=== PATIENT | male | born 1965 | race Two or more races ===

== ENCOUNTER 2020-09-02 10:30 | Outpatient (REF) | payer OTHER, SELFPAY ==
[2020-09-02 12:01] LABS: Alanine Aminotransferase 22 U/L (0-40); Albumin Level 4.5 g/dL (3.5-5.0); Alkaline Phosphatase 64 U/L (39-117); Anion Gap 13 (12-20); Aspartate Amino Transferase 22 U/L (5-37); Bilirubin Total 0.6 mg/dL (0.0-1.0); Blood Urea Nitrogen 18 mg/dL (9-16); Calcium 9.2 mg/dL (8.4-10.2); Carbon Dioxide 30 mmol/L (22-29); Chloride 103 mmol/L (96-108); Cholesterol 229 mg/dL; Estimated Glomerular Filt Rate > 60; Glucose Fasting 107 mg/dL (60-99); HDL Cholesterol 71 mg/dL; LDL Cholesterol Calculated 143 mg/dl; Potassium 5.2 mmol/L (3.3-5.1); Sodium 141 mmol/L (135-145); Total Protein 7.7 g/dL (6.5-8.0); Triglycerides 76 mg/dL
[2020-09-02 12:07] LABS: TSH reflex Free T4 0.73 uIU/mL (0.32-4.0)
== END 2020-09-02 10:31 | disposition home or self-care (01) ==
LOC: HO.HMGCLDS 10:30
PROVIDERS: PCP Nurse Practitioner Family; Visit Provider Nurse Practitioner Family
DX: Z00.00 Encounter for general adult medical examination without abnormal findings (principal); Z12.5 Encounter for screening for malignant neoplasm of prostate
CPT/HCPCS: 36415; 80053; 80061; 84153; 84443

== ENCOUNTER 2021-05-06 07:28 | Outpatient (REF) | payer OTHER, SELFPAY ==
[2021-05-06 12:25] LABS: Alanine Aminotransferase 36 U/L (0-40); Albumin Level 4.1 g/dL (3.5-5.0); Alkaline Phosphatase 65 U/L (39-117); Anion Gap 12 (12-20); Aspartate Amino Transferase 28 U/L (5-37); Bilirubin Total 0.4 mg/dL (0.0-1.0); Blood Urea Nitrogen 12 mg/dL (9-16); Calcium 9.1 mg/dL (8.4-10.2); Carbon Dioxide 28 mmol/L (22-29); Chloride 105 mmol/L (96-108); Cholesterol 170 mg/dL; Estimated Glomerular Filt Rate > 60; Glucose Fasting 93 mg/dL (60-99); HDL Cholesterol 56 mg/dL; LDL Cholesterol Calculated 96 mg/dl; Potassium 4.5 mmol/L (3.3-5.1); Sodium 140 mmol/L (135-145); Total Protein 7.2 g/dL (6.5-8.0); Triglycerides 90 mg/dL
== END 2021-05-06 07:29 | disposition home or self-care (01) ==
LOC: HO.HMGCLDS 07:28
PROVIDERS: PCP Nurse Practitioner Family; Visit Provider Nurse Practitioner Family
DX: E78.5 Hyperlipidemia, unspecified (principal)
CPT/HCPCS: 36415; 80053; 80061

== ENCOUNTER 2022-11-13 12:14 | Outpatient (REF) | payer OTHER, SELFPAY ==
--- NOTE | ~2022-11-13 | CT_ITS ---
EXAMINATION: CT CHEST SCREENING CLINICAL INFORMATION: Nicotine dependence, current smoker. COMPARISON: None available. TECHNIQUE: Multidetector volumetric CT imaging of the chest is performed without contrast using low dose technique. Additional 2D coronal and sagittal reformatted images and axial 3D maximum intensity projection (MIP) images are generated on the CT workstation. This CT examination was performed using dose optimization techniques as appropriate, variously including the following: *Automated exposure control *Adjustment of mA and/or kV according to patient size (this includes techniques or standardized protocols for targeted exams where dose is matched to indication/reason for exam; i.e. extremities or head) *Use of iterative reconstruction technique DLP: 55 mGy-cm FINDINGS: LUNGS: The lungs are expanded with bilateral apical pleural thickening and parenchymal scarring. There is mild atelectatic changes left lung base and lingula. There is a 2 mm calcified nodule left lower lobe axial image 49/4, 2 mm noncalcified nodule right lower lobe axial image 31/4, 3 mm nodule left major fissure axial image 30/4, likely intrafissural lymph node. There is linear focal atelectasis left lung base image 51/3. MEDIASTINUM: The thyroid lobes are symmetric and normal. The central trachea and bronchi are widely patent. The heart size and great vessels are normal caliber. There are no coronary artery calcifications present. No pericardial effusion seen. No abnormal-sized mediastinal or hilar lymph nodes seen. CORONARY ARTERY CALCIFICATION: None visualized on this study. PLEURA: There is no pleural effusion. No pleural mass or thickening. AXILLA: No lymphadenopathy. UPPER ABDOMEN: Visualized liver, spleen, pancreas, bilateral adrenal glands and the gallbladder appear unremarkable. OSSEOUS STRUCTURES: No aggressive lytic or sclerotic process seen. CT/CT lung screening IMPRESSION: 1. Small calcified and noncalcified pulmonary nodules. 2. Low-dose annual CT chest. ASSESSMENT: Lung-RADS category 2: Benign RECOMMENDATION: Low-dose annual CT chest
[2022-11-13 12:25] LABS: MANUAL DIFF FLAG NO
[2022-11-13 13:10] LABS: Basophils Percent Auto 0.6 % (0-2); Eosinophils Absolute Auto 0.1 X10*3/uL (0.0-0.4); Eosinophils Percent Auto 1.5 % (0-4); Hematocrit 40.8 % (42.0-52.0); Hemoglobin 13.6 g/dl (14.0-18.0); Imm Gran Abs Auto 0.03 X10*3/uL (0.00-0.03); Imm Gran Pct Auto 0.4 % (0.0-0.4); Lymphocytes Absolute Auto 2.1 X10*3/uL (1.2-4.9); Lymphocytes Percent Auto 29.6 % (20-40); Mean Corpuscular HGB Conc 33.3 g/dl (31.0-36.0); Mean Corpuscular Hemoglobin 31.7 pg (27.0-33.0); Mean Corpuscular Volume 95.1 fL (80.0-98.0); Mean Platelet Volume 10.6 fL (9.4-12.4); Monocytes Absolute Auto 0.7 X10*3/uL (0.1-1.2); Monocytes Percent Auto 9.8 % (2-11); Neutrophils Absolute Auto 4.2 x10*3/uL (2.0-8.3); Neutrophils Percent Auto 58.1 % (45-73); Platelet Count 242 X10*3/uL (160-400); Red Blood Count 4.29 X10*6/uL (4.60-5.80); Red Cell Distribution Width 13.8 % (11.0-16.0); White Blood Count 7.2 X10*3/uL (4.8-10.8)
[2022-11-13 13:13] LABS: Appearance Urine Cloudy; Color Urine Yellow; Glucose Urine UA Negative (Negative); Leukocyte Esterase Urine Negative (Negative); Nitrite Urine Negative (Negative); Urine Blood Negative (Negative); Urine Ketones Negative (Negative); Urine Protein Negative (Neg-Trace)
[2022-11-13 13:57] LABS: Alanine Aminotransferase 27 U/L (0-40); Albumin Level 4.2 g/dL (3.5-5.0); Alkaline Phosphatase 62 U/L (39-117); Anion Gap 12 (12-20); Aspartate Amino Transferase 20 U/L (5-37); Bilirubin Total 0.7 mg/dL (0.0-1.0); Blood Urea Nitrogen 14 mg/dL (9-16); Calcium 9.4 mg/dL (8.4-10.2); Carbon Dioxide 27 mmol/L (22-29); Chloride 105 mmol/L (96-108); Cholesterol 186 mg/dL; Estimated Glomerular Filt Rate > 60; Glucose Fasting 92 mg/dL (60-99); HDL Cholesterol 61 mg/dL; LDL Cholesterol Calculated 113 mg/dl; Potassium 4.1 mmol/L (3.3-5.1); Sodium 140 mmol/L (135-145); Total Protein 7.4 g/dL (6.5-8.0); Triglycerides 63 mg/dL
[2022-11-13 14:18] LABS: Prostate Specific Antigen Scr 0.51 ng/mL (<0.05-4.0); TSH reflex Free T4 0.75 uIU/mL (0.32-4.0)
== END 2022-11-13 12:15 | disposition home or self-care (01) ==
LOC: HO.CT 12:14
PROVIDERS: Absent Provider Nurse Practitioner Family; PCP Nurse Practitioner Family; Visit Provider Physician Assistant Medical
DX: Z00.00 Encounter for general adult medical examination without abnormal findings (principal); Z12.5 Encounter for screening for malignant neoplasm of prostate; Z12.2 Encounter for screening for malignant neoplasm of respiratory organs; F17.210 Nicotine dependence, cigarettes, uncomplicated
CPT/HCPCS: 36415; 71271; 80053; 80061; 81003; 84153; 84443; 85025; G0296

== ENCOUNTER 2023-02-12 10:02 | Outpatient (REF) | payer OTHER, SELFPAY ==
[2023-02-12 13:33] LABS: MANUAL DIFF FLAG NO
[2023-02-12 13:41] LABS: Basophils Percent Auto 0.7 % (0-2); Eosinophils Absolute Auto 0.2 X10*3/uL (0.0-0.4); Eosinophils Percent Auto 4.1 % (0-4); Hematocrit 42.6 % (42.0-52.0); Hemoglobin 14.3 g/dl (14.0-18.0); Imm Gran Abs Auto 0.01 X10*3/uL (0.00-0.03); Imm Gran Pct Auto 0.2 % (0.0-0.4); Immature Retic Fraction 9.8 % (2.3-13.4); Lymphocytes Absolute Auto 1.8 X10*3/uL (1.2-4.9); Lymphocytes Percent Auto 29.9 % (20-40); Mean Corpuscular HGB Conc 33.6 g/dl (31.0-36.0); Mean Corpuscular Volume 95.3 fL (80.0-98.0); Mean Platelet Volume 10.6 fL (9.4-12.4); Monocytes Absolute Auto 0.6 X10*3/uL (0.1-1.2); Monocytes Percent Auto 10.8 % (2-11); Neutrophils Absolute Auto 3.2 x10*3/uL (2.0-8.3); Neutrophils Percent Auto 54.3 % (45-73); Platelet Count 253 X10*3/uL (160-400); Red Blood Count 4.47 X10*6/uL (4.60-5.80); Red Cell Distribution Width 13.3 % (11.0-16.0); Reticulocyte Percent 1.4 % (0.5-1.8); Reticulocytes Absolute 0.063 X10*6/uL (0.026-0.095); White Blood Count 5.9 X10*3/uL (4.8-10.8)
[2023-02-12 14:26] LABS: Iron 105 mcg/dL (45-160); Percent Iron Saturation 38 % (15-50); Total Iron Binding Capacity 273 mcg/dL (228-428); Unsaturated Iron Binding 168 ug/dL
[2023-02-12 14:32] LABS: Ferritin 303 ng/mL (20-250)
[2023-02-12 14:44] LABS: Folate 13.3 ng/mL (> or = 4.0); Vitamin B12 728 pg/mL (200-900)
== END 2023-02-12 10:03 | disposition home or self-care (01) ==
LOC: HO.HMGCLDS 10:02
PROVIDERS: PCP Nurse Practitioner Family; Visit Provider Nurse Practitioner Family
DX: D64.9 Anemia, unspecified (principal)
CPT/HCPCS: 36415; 82607; 82728; 82746; 83540; 85025; 85045

== ENCOUNTER 2023-10-05 16:36 | Outpatient (AMB) | payer OTHER, SELFPAY ==
--- NOTE | 2023-10-05 16:46 | MHC.PC.OV ---
Vital Signs 10/05/23 16:48 Weight 184 lb BP 128/70 Blood Pressure Location Rt brachial Position Sitting Pulse 75 Pulse Source Pulse Oximeter Pulse Oximetry (%) 95 Oxygen Delivery Method Room Air Intake Visit Reasons: PE Intake Note: Patient here for physical exam Allergies No Known Allergies [No Known Allergies*] Allergy (Verified 10/05/23 17:07) Medication List - Last Reconciled 10/05/23 by TRINIDAD Pratt-JAE rosuvastatin 20 mg PO DAILY 90 days Tobacco use date assessed: 10/05/23 Dental Screening Dental Screen Date: 10/05/23 Did you have a dental visit in the last 12 months?: Yes Did you have a dental problem in the last 6 months where you did not have access to dental care?: No Was dental information given to patient?: Patient has dentist HPI PE HPI Details pt is here for a PE. due for repeat colon screen 01/2024, will refer. Pt quit smoking last december, still goes for lung screenings. Pt denies any nocturia, weak stream, excessive dribbling after urination, or incomplete bladder emptying. [facility] Medical History (Updated 10/05/23 @ 16:59 by TRINIDAD Pratt-JAE) Hyperplastic colon polyp Nicotine dependence, cigarettes, uncomplicated Dyslipidemia Surgical History History of esophagogastroduodenoscopy (EGD) History of colonoscopy History of left inguinal hernia repair Family History Father Chronic renal failure Mother Hemorrhoids Social History Housing: House Alcohol intake: current Alcohol intake frequency: 3 or more drinks per day Patient Tobacco Use Status: Former Tobacco user Cigarette Packs Per Day: 1 Years Smoked: (onset 31yo, 1ppd x 26yrs, 20+PYH) e-Cigarette/Vaping Use: Never Used Second Hand Smoke Exposure: No Current occupational status: employed Cognitive needs: No Hearing needs: No Vision needs: No Questionnaire PHQ-9 Over the last 2 weeks, how often have you been bothered by any of the following problems? 90275 - PHQ-9 Billing: Patient declined-do not bill Source: Developed by Drs. Paolo Garcia, Mariana De La Cruz, Derek Thomas and colleagues, with an educational luna from [employer]. Thrive Questionnaire Date Thrive assessed: 10/05/23 I am a: Patient What is your living situation today?: I have a steady place to live Within the past 12 months, did the food you bought not last and you didn't have the money to get more?: Never true Within the past 12 months, did you worry whether your food would run out before you got money to buy more?: Never true Do you have trouble paying for medicines?: No Do you have trouble getting transportation to medical appointments?: No Do you have trouble paying your heating and electricity bill?: No Do you have trouble taking care of your child, family member or friend?: No Do you have trouble with day-to-day activities such as bathing, preparing meals, shopping, managing finances, etc.?: No Are you currently unemployed and looking for a job?: No Are you interested in more education?: Yes Currently or been in a relationship where the following occur: I choose not to answer this question THRIVE Score: 0 AUDIT C Alcohol Use Questionnaire (AUDIT-C) 1. How often do you have a drink containing alcohol?: 4 or more times a week 2. How many drinks containing alcohol do you have on a typical day when you are drinking?: 1 or 2 3. How often do you have six or more drinks on one occasion?: Never Total Score: 4 Score Reviewed/Action Taken: No LINDSEY-7 AMB Questionnaire LINDSEY-7 Date LINDSEY - 7 assessed: 10/05/23 Feeling nervous, anxious, or on edge: 0 = Not at all Not being able to stop or control worryin = Not at all Worrying too much about different things: 0 = Not at all Trouble relaxin = Not at all Being so restless that it is hard to sit still: 0 = Not at all Becoming easily annoyed or irritable: 0 = Not at all Feeling afraid as if something awful might happen: 0 = Not at all Total LINDSEY-7 score (0-4 normal; 5-9 mild; 10-14 moderate; 15-21 severe): 0 Source: Developed by Mariana GarciaW. Jono, Derek Thomas and colleagues, with an educational luna from [employer]. LINDSEY-7 Assessment Billing LINDSEY-7 Assessment Tool: LINDSEY-7 Assessment 00514 Review of Systems Const Denies chills and Denies fever(s) Eyes Denies blurry vision ENT Denies vertigo, Denies dizziness and Denies sore throat Card Denies chest pain at rest, Denies chest pain with activity, Denies diaphoresis, Denies dyspnea and Denies dyspnea on exertion Resp Denies cough, Denies dyspnea, Denies dyspnea on exertion and Denies wheezing GI Denies abdominal pain, Denies melena, Denies hematochezia, Denies constipation, Denies diarrhea and Denies loose stools Denies hematuria Musc Denies numbness and Denies tingling Skin/Breast Denies lesions Neuro Denies vertigo, Denies dizziness, Denies numbness and Denies tingling Psych Denies anxiety, Denies depression, Denies homicidal ideation, Denies suicidal ideation and Denies other (substance abuse) Aller/Immun Denies wheezing Physical exam (Primary Care) Vital Signs: Last Vital Signs Pulse 75 10/05/23 16:48 BP 128/70 10/05/23 16:48 Pulse Ox 95 10/05/23 16:48 Oxygen Delivery Method Room Air 10/05/23 16:48 Tobacco/Smoking Status: Tobacco use Status Tobacco use date assessed 10/05/23 10/05/23 16:52 Patient Tobacco Use Status Former Tobacco user 10/05/23 16:52 e-Cigarette/Vaping Use Never Used 10/05/23 16:47 Thrive Assessment: Date of Thrive Assessment Date Thrive assessed 10/05/23 10/05/23 16:53 Currently or been in a relationship where the following occur: I choose not to answer this question Const General: cooperative Nutritional Appearance: well nourished Orientation/consciousness: patient oriented x3 HENMT Head: Yes normal to inspection, Yes normocephalic and Yes atraumatic Ears: TM normal on the right and TM normal on the left Eyes General: appearance normal, both eyes and all related structures Alignment and Position: alignment normal and position normal Neck Neck: Yes normal visual inspection and Yes no lymphadenopathy Resp Effort & Inspection: normal respiratory effort Auscultation: clear to auscultation bilaterally Cardio Rate: regular rate Rhythm: regular rhythm Heart sounds: S1 normal heart sound present, S2 normal heart sound present and no murmurs GI Palpation (GI): Soft to palpation and nontender Auscultation: normal bowel sounds Male General Exam: Yes normal external exam Penis: normal penis Scrotum: scrotum normal, testes descended bilaterally and no inguinal hernias Testes: no testicular mass Skin Rashes: no rashes Neuro General: patient oriented x3, moves all extremities, no focal motor deficits and deep tendon reflexes 2+ bilaterally Romberg Test: Negative Extrem Right lower extremity: no edema Left lower extremity: no edema Psych Affect: normal affect Attitude: cooperative Thought process: Normal thought process present Assessment and Plan Assessment & Plan (1) Screening for colon cancer: Code(s): Z12.11 - Encounter for screening for malignant neoplasm of colon (2) Physical exam: Code(s): Z00.00 - Encounter for general adult medical examination without abnormal findings (3) Screening PSA (prostate specific antigen): Code(s): Z12.5 - Encounter for screening for malignant neoplasm of prostate Orders: Orders Complete Blood Count Auto Diff Today Z00.00 - Encounter for general adult medical examination without abnormal findings TSH reflex Free T4 Today Z00.00 - Encounter for general adult medical examination without abnormal findings Lipid Panel Today Z00.00 - Encounter for general adult medical examination without abnormal findings Comprehensive [place]. Panel Fast Today Z00.00 - Encounter for general adult medical examination without abnormal findings UA CC w/rflx Micro + Cult Today Z00.00 - Encounter for general adult medical examination without abnormal findings Prostate Specific Antigen Scr Today Z12.5 - Encounter for screening for malignant neoplasm of prostate Referrals Gastroenterology Referral Z12. - Encounter for screening for malignant neoplasm of colon Coding Level of Care Code Est Pt Prev Care 40-64y(46311) Diagnoses Screening for colon cancer Z12. Physical exam Z00.00 Screening PSA (prostate specific antigen) Z12.5 Additional Codes LINDSEY-7 Assessment Billing - LINDSEY-7 Assessment Tool: LINDSEY-7 Assessment [id number] ([id number])
[2023-10-05 16:48] VITALS: BP 128/70; PULSE 75; O2SAT 95
== END 2023-10-05 17:11 | disposition home or self-care (01) ==
LOC: HO.HMGC 16:36
PROVIDERS: PCP Nurse Practitioner Family; Visit Provider Nurse Practitioner Family
DX: Z00.00 Encounter for general adult medical examination without abnormal findings (principal); Z12.11 Encounter for screening for malignant neoplasm of colon; Z12.5 Encounter for screening for malignant neoplasm of prostate
CPT/HCPCS: 99396

== ENCOUNTER 2023-11-17 07:47 | Outpatient (REF) | payer OTHER, SELFPAY ==
[2023-11-17 10:40] LABS: MANUAL DIFF FLAG NO
[2023-11-17 10:46] LABS: Basophils Percent Auto 0.8 % (0-2); Eosinophils Absolute Auto 0.2 X10*3/uL (0.0-0.4); Eosinophils Percent Auto 3.9 % (0-4); Hematocrit 41.4 % (42.0-52.0); Hemoglobin 13.8 g/dl (14.0-18.0); Imm Gran Abs Auto 0.03 X10*3/uL (0.00-0.03); Imm Gran Pct Auto 0.6 % (0.0-0.4); Lymphocytes Absolute Auto 1.9 X10*3/uL (1.2-4.9); Lymphocytes Percent Auto 36.5 % (20-40); Mean Corpuscular HGB Conc 33.3 g/dl (31.0-36.0); Mean Corpuscular Hemoglobin 31.7 pg (27.0-33.0); Mean Corpuscular Volume 95.2 fL (80.0-98.0); Mean Platelet Volume 10.4 fL (9.4-12.4); Monocytes Absolute Auto 0.7 X10*3/uL (0.1-1.2); Monocytes Percent Auto 13.2 % (2-11); Neutrophils Absolute Auto 2.3 x10*3/uL (2.0-8.3); Platelet Count 258 X10*3/uL (160-400); Red Blood Count 4.35 X10*6/uL (4.60-5.80); Red Cell Distribution Width 13.1 % (11.0-16.0); White Blood Count 5.1 X10*3/uL (4.8-10.8)
[2023-11-17 10:57] LABS: Appearance Urine Clear; Color Urine Yellow; Glucose Urine UA Negative (Negative); Leukocyte Esterase Urine Small (1+) (Negative); Nitrite Urine Negative (Negative); UMIC TRIGGER UACC YES; Urine Blood Negative (Negative); Urine Ketones Negative (Negative); Urine Protein Negative (Neg-Trace)
[2023-11-17 11:00] LABS: Bacteria Urine None Seen (None Seen); Hyaline Casts Urine 0-2 /LPF (0-2); RBC Urine 0-2 /HPF (0-2); Squamous Epithelial Cell Urine 0-2 /HPF (0-2); UACC Culture Trigger YES
[2023-11-17 11:30] LABS: Prostate Specific Antigen Scr 0.35 ng/mL (<0.05-4.0)
[2023-11-17 11:36] LABS: Alanine Aminotransferase 40 U/L (0-40); Albumin Level 4.1 g/dL (3.5-5.0); Alkaline Phosphatase 59 U/L (39-117); Anion Gap 11 (12-20); Aspartate Amino Transferase 28 U/L (5-37); Bilirubin Total 0.6 mg/dL (0.0-1.0); Blood Urea Nitrogen 17 mg/dL (9-16); Calcium 9.1 mg/dL (8.4-10.2); Carbon Dioxide 25 mmol/L (22-29); Chloride 107 mmol/L (96-108); Cholesterol 210 mg/dL (<200); Estimated Glomerular Filt Rate > 60; Glucose Fasting 97 mg/dL (60-99); HDL Cholesterol 57 mg/dL (>40); LDL Cholesterol Calculated 108 mg/dL (<100); Potassium 3.6 mmol/L (3.3-5.1); Sodium 139 mmol/L (135-145); TSH reflex Free T4 1.41 uIU/mL (0.32-4.0); Total Protein 7.5 g/dL (6.5-8.0); Triglycerides 227 mg/dL (<150)
== END 2023-11-17 07:48 | disposition home or self-care (01) ==
LOC: HO.HMGCLDS 07:47
PROVIDERS: PCP Nurse Practitioner Family; Visit Provider Nurse Practitioner Family
DX: Z00.00 Encounter for general adult medical examination without abnormal findings (principal); Z12.5 Encounter for screening for malignant neoplasm of prostate
CPT/HCPCS: 36415; 80053; 80061; 81001; 84153; 84443; 85025; 87086

== ENCOUNTER 2024-02-10 15:14 | Outpatient (REF) | payer OTHER, SELFPAY ==
--- NOTE | ~2024-02-10 | CT_ITS ---
EXAMINATION: CT LOW-DOSE SCREENING CHEST WITHOUT CONTRAST CLINICAL INFORMATION: Nicotine dependence, cigarettes, uncomplicated. The patient has a 20 pack-year history of smoking, having quit less than 1 year ago. COMPARISON: CT chest 11/13/2022. TECHNIQUE: Multidetector volumetric CT imaging of the chest is performed on a Siemens SOMATOM Definition scanner without contrast using low dose technique. Additional 2D coronal and sagittal reformatted images and axial 3D maximum intensity projection (MIP) images are generated on the CT workstation. This CT examination was performed using dose optimization techniques as appropriate, variously including the following: *Automated exposure control *Adjustment of mA and/or kV according to patient size (this includes techniques or standardized protocols for targeted exams where dose is matched to indication/reason for exam; i.e. extremities or head) *Use of iterative reconstruction technique TOTAL EXAM DLP: 52 mGy-cm. CTDIvol: 1.56 mGy. FINDINGS: PULMONARY NODULES: No suspicious pulmonary nodules. LUNGS: Lungs bilaterally symmetrically expanded. No significant emphysematous changes are seen. Some minimal bibasilar scarring is present. Some mild bronchial thickening is present. Biapical pleural-parenchymal thickening. No effusion or pneumothorax. Central airways patent. MEDIASTINUM: No mediastinal, hilar or axillary adenopathy or free fluid collection. CORONARY ARTERY CALCIFICATION: None visualized on this study. THYROID GLAND: Unremarkable to the extent seen. CARDIOVASCULAR STRUCTURES: Aortic and heart size normal. No pericardial effusion. CHEST WALL/AXILLA: Unremarkable. UPPER ABDOMEN: Mild hepatic steatosis. Included portions of the solid organs in the upper abdomen otherwise unremarkable on noncontrast imaging. OSSEOUS STRUCTURES: No suspicious focal findings. CT/CT lung screening IMPRESSION: 1. No evidence of pulmonary malignancy. 2. Incidental note made of mild hepatic steatosis. ASSESSMENT: 1. Lung-RADS ategory 1: Negative. There are no nodules or there are definitely benign nodules. 2. Lung-RADS Category S: Negative. There are no clinically significant or potentially clinically significant findings not related to the lungs requiring urgent additional evaluation. RECOMMENDATION: Continued routine annual low-dose CT lung screening in 1 year is recommended. An order for CT CHEST LOW DOSE CANCER SCREENING ([id number]) can be placed. Electronically signed by: Haroon Kincaid MD 04/03/2024 08:53 PM EDT
== END 2024-02-10 15:15 | disposition home or self-care (01) ==
LOC: HO.CT 15:14
PROVIDERS: PCP Nurse Practitioner Family; Visit Provider Physician Assistant Medical
DX: Z12.2 Encounter for screening for malignant neoplasm of respiratory organs (principal); F17.210 Nicotine dependence, cigarettes, uncomplicated
CPT/HCPCS: 71271

== ENCOUNTER 2024-05-01 11:38 | Outpatient (REF) | payer OTHER, SELFPAY ==
[2024-05-01 12:22] LABS: Appearance Urine Clear; Color Urine Yellow; Glucose Urine UA Negative (Negative); Leukocyte Esterase Urine Trace (Negative); Nitrite Urine Negative (Negative); PH 5.5 (5.0-9.0); Specific Gravity - Urine 1.025 (1.005-1.025); UMIC TRIGGER UACC YES; Urine Blood Negative (Negative); Urine Ketones Trace mg/dL (Negative); Urine Protein Trace mg/dL (Neg-Trace)
[2024-05-01 12:32] LABS: Bacteria Urine None Seen (None Seen); Hyaline Casts Urine 0-2 /LPF (0-2); RBC Urine 0-2 /HPF (0-2); Squamous Epithelial Cell Urine 0-2 /HPF (0-2); WBC Urine 0-5 /HPF (0-5)
[2024-05-01 13:00] LABS: Alanine Aminotransferase 52 U/L (0-40); Albumin Level 4.4 g/dL (3.5-5.0); Alkaline Phosphatase 63 U/L (39-117); Anion Gap 15 (12-20); Aspartate Amino Transferase 44 U/L (5-37); Bilirubin Total 0.6 mg/dL (0.0-1.0); Blood Urea Nitrogen 16 mg/dL (9-16); Calcium 9.5 mg/dL (8.4-10.2); Carbon Dioxide 24 mmol/L (22-29); Chloride 104 mmol/L (96-108); Cholesterol 183 mg/dL (<200); Estimated Glomerular Filt Rate > 60; Glucose Fasting 91 mg/dL (60-99); HDL Cholesterol 57 mg/dL (>40); LDL Cholesterol Calculated 97 mg/dL (<100); Potassium 3.9 mmol/L (3.3-5.1); Sodium 139 mmol/L (135-145); Total Protein 7.9 g/dL (6.5-8.0); Triglycerides 149 mg/dL (<150)
== END 2024-05-01 11:39 | disposition home or self-care (01) ==
LOC: HO.LAB 11:38
PROVIDERS: PCP Nurse Practitioner Family; Visit Provider Nurse Practitioner Family
DX: E78.5 Hyperlipidemia, unspecified (principal)
CPT/HCPCS: 36415; 80053; 80061; 81001

== ENCOUNTER 2024-05-09 08:20 | Outpatient (REF) | payer OTHER, SELFPAY ==
--- NOTE | ~2024-05-09 | US_ITS ---
EXAMINATION: US ABDOMEN COMPLETE CLINICAL INFORMATION: Abnormal levels of other serum enzymes. Elevated liver enzymes. COMPARISON: No priors.. TECHNIQUE: Real-time imaging of the abdominal viscera using grayscale and color Doppler technique. FINDINGS: Submitted for interpretation on June 07, 2024. PANCREAS: No peripancreatic fluid collections. ABDOMINAL AORTA: The proximal, mid, and distal segments are normal in caliber. INFERIOR VENA CAVA: Visualized portions are normal. LIVER: Increased echotexture. Liver measures 16 cm. No nodular surface. No solid or cystic lesion. No intrahepatic biliary ductal dilatation. Main portal vein is patent with normal hepatopedal flow direction. GALLBLADDER: Fluid-filled. No pericholecystic fluid collection or gallbladder wall thickening. COMMON BILE DUCT: 2 mm. RIGHT KIDNEY: 11 cm. Normal echotexture. Normal renal cortical thickness. No solid or cystic lesion. No hydronephrosis. Normal flow on color Doppler interrogation of the renal hilum. LEFT KIDNEY: 10 cm. Normal echotexture. Normal renal cortical thickness. No solid or cystic lesion. No hydronephrosis. Normal flow on color Doppler interrogation of the renal hilum. SPLEEN: 10 cm. No solid or cystic lesion. Normal flow of the splenic vessels. FREE FLUID: None. US/US abdomen complete IMPRESSION: No cholelithiasis. Hepatomegaly, mild and steatosis. No ascites. No hydronephrosis. Electronically signed by: Marty Musa MD 06/07/2024 03:21 PM EST
[2024-05-09 10:39] LABS: Appearance Urine Clear; Color Urine Yellow; Glucose Urine UA Negative (Negative); Leukocyte Esterase Urine Negative (Negative); Nitrite Urine Negative (Negative); PH 5.5 (5.0-9.0); Urine Blood Negative (Negative); Urine Ketones Negative (Negative); Urine Protein Negative (Neg-Trace)
[2024-05-09 12:00] LABS: HBS Num1 0.46 mIU/mL (0-7.99); HBc Num1 0.16 S/CO (0.00-0.79); HBsAGNum1 0.44 S/CO (0.00-0.99); Hepatitis A Antibody IgM 0.13 Index (0-0.79); Hepatitis B Core Antibody Nonreactive (Nonreactive); Hepatitis B Surface Antigen Negative (Negative); ~HepC Num1 0.13 S/CO (0.00-0.79); ~Hepatitis A Antibody IgM Nonreactive (Nonreactive); ~Hepatitis B Surface Antibody NONREACTIVE (Nonreactive); ~Hepatitis C Antibody Nonreactive (Nonreactive)
== END 2024-05-09 08:21 | disposition home or self-care (01) ==
LOC: HO.HMGCX 08:20
PROVIDERS: PCP Nurse Practitioner Family; Visit Provider Nurse Practitioner Family
DX: Z00.00 Encounter for general adult medical examination without abnormal findings (principal); R74.8 Abnormal levels of other serum enzymes
CPT/HCPCS: 36415; 76700; 81003; 86704; 86706; 86709; 86803; 87340

== ENCOUNTER → 2024-05-09 08:24 | Outpatient (BNV) | payer OTHER, SELFPAY | PROVIDERS: PCP Nurse Practitioner Family; Visit Provider Radiology Diagnostic Radiology | DX: R74.8 Abnormal levels of other serum enzymes (principal); R74.01 Elevation of levels of liver transaminase levels | CPT/HCPCS: 76700 ==

== ENCOUNTER → 2024-06-05 15:37 | Outpatient (BNVA) | payer OTHER, SELFPAY | PROVIDERS: PCP Nurse Practitioner Family; Visit Provider Internal Medicine | DX: R74.8 Abnormal levels of other serum enzymes (principal); F10.90 Alcohol use, unspecified, uncomplicated; Z86.0100 Personal history of colon polyps, unspecified | CPT/HCPCS: 99202 ==

== ENCOUNTER 2024-10-26 14:58 | Outpatient (AMB) | payer OTHER, SELFPAY ==
--- NOTE | 2024-10-26 15:04 | A.OFFPC_ITS ---
Vital Signs 10/26/24 15:05 Height 5 ft 11 in Weight 198 lb BMI 27.6 BP 138/82 Blood Pressure Location Lt brachial Position Sitting Pulse 86 Pulse Source Pulse Oximeter Pulse Oximetry (%) 98 Oxygen Delivery Method Room Air Intake Visit Reasons: PE Allergies No Known Allergies [No Known Allergies*] Allergy (Verified 10/26/24 15:23) Medication List - Last Reconciled 10/26/24 by PERRY Pratt rosuvastatin 40 mg PO DAILY 90 days Tobacco use date assessed: 10/26/24 Dental Screening Dental Screen Date: 10/26/24 Did you have a dental visit in the last 12 months?: Yes Did you have a dental problem in the last 6 months where you did not have access to dental care?: No Was dental information given to patient?: Patient has dentist HPI PE HPI Details History of Present Illness The patient is a 59-year-old male presenting for a physical examination. He reports no symptoms of chest pain or respiratory distress. There are no complaints of gastrointestinal issues such as abdominal pain or irregular bowel movements. The patient has completed precolonoscopy assessments and is pending a repeat colon screening. His smoking history is notable, with cessation occurring two years prior. He is part of the low-dose CAT scan program, addressing preventative health. Examination identified a small umbilical hernia. The patient denies any psychological distress, including suicidal or homicidal thoughts. Health Maintenance - Participation in low-dose CAT scan pro gram for screening. - Precolonoscopy assessment completed; s cheduled for future colon screening hopefully in the near future. - Smoking cessation reported two years a go. -declined ANDREY, PSA ordered Social History - Former smoker, ceased smoking two year s ago. Review of Systems - Cardiovascular: Denies chest pain. - Respiratory: Denies shortness of breat h. - Gastrointestinal: Denies abdominal vega n, blood in stool, constipation, diarrhea. - Genitourinary: Denies any urinary issu es. - Psychological: Denies suicidal ideatio n, homicidal ideation. Physical Exam General: Cooperative, healthy appearing, comfortable, no acute distress and well developed Orientation: Patient oriented x3 Limitations: No limitations Head: Normal to inspection Ears: Hearing grossly normal bilaterally Nose: Normal external nose present Face and sinus: Normal facial exam Eyes: Appearance normal, both eyes and all related structures Neck: Normal visual inspection and Yes full ROM Respiratory: Normal respiratory effort and able to speak in complete sentences. Clear to auscultation bilaterally Cardiovascular: Regular rate and rhythm. Normal S1 and S2 GI: Normal to inspection. Soft to palpation and nontender. Small umbilical hernia noted Skin: No rashes or lesions noted Neuro: Patient oriented x3 Extremities: Normal to inspection Results Plan I reviewed the patient's overall health and ongoing management strategy. The physical examination mainly aimed to monitor the patient?s current health status, identifying a small umbilical hernia that needs monitoring for potential future intervention. The patient is scheduled for a repeat colon screening as part of routine preventative care. Ceasing smoking two years ago positively impacts his health. Continued participation in the low-dose CAT scan program is advised for preventative measures. No urgent interventions are required at present. Discussion Notes I discussed with the patient the plan for continual monitoring of his small umbilical hernia, emphasizing the importance of noting any changes or symptoms. We discussed the upcoming colon screening procedure and its role in health maintenance. The benefits of his smoking cessation continue to be underscored in our discussions, alongside his ongoing participation in the low-dose CAT scan program. No other interventions were deemed necessary at this time based on his current health status. Patient Instructions - Monitor for any changes or symptoms re lated to the umbilical hernia and report as needed. - Attend the scheduled colonoscopy leonard rahman. - Continue participation in the low-dose CAT scan program. - Maintain a smoke-free lifestyle. - Contact for any new or concerning symp toms. [facility] Medical History Hyperplastic colon polyp Nicotine dependence, cigarettes, uncomplicated Dyslipidemia Surgical History History of esophagogastroduodenoscopy (EGD) History of colonoscopy History of left inguinal hernia repair Family History Father Chronic renal failure Mother Hemorrhoids Social History Housing: House Alcohol intake: current Alcohol intake frequency: 3 or more drinks per day Patient Tobacco Use Status: Former Tobacco user Cigarette Packs Per Day: 1 Years Smoked: (onset 31yo, 1ppd x 26yrs, 20+PYH) e-Cigarette/Vaping Use: Never Used Second Hand Smoke Exposure: No Current occupational status: employed Cognitive needs: No Hearing needs: No Vision needs: No Questionnaire PHQ-9 Over the last 2 weeks, how often have you been bothered by any of the following problems? 1. Little interest or pleasure in doing things: not at all 2. Feeling down, depressed, or hopeless: not at all 3. Trouble falling or staying asleep, or sleeping too much: not at all 4. Feeling tired or having little energy: not at all 5. Poor appetite or overeating: not at all 6. Feeling bad about yourself - or that you are a failure or have let yourself or your family down: not at all 7. Trouble concentrating on things, such as reading the newspaper or watching television: not at all 8. Moving or speaking so slowly that other people could have noticed. Or the opposite - being so fidgety or restless that you have been moving around a lot more than usual: not at all 9. Thoughts that you would be better off or of hurting yourself in some way: not at all Total score: 0 Depression Screening Interpretation: Negative Depression Screening Done: Yes 56133 - PHQ-9 Billing: Yes Source: Developed by Drs. Paolo Garcia, Mariana De La Cruz, Derek Thomas and colleagues, with an educational luna from [employer]. Thrive Questionnaire Date Thrive assessed: 10/26/24 I am a: Patient What is your living situation today?: I have a steady place to live Within the past 12 months, did the food you bought not last and you didn't have the money to get more?: Never true Within the past 12 months, did you worry whether your food would run out before you got money to buy more?: Never true Do you have trouble paying for medicines?: No Do you have trouble getting transportation to medical appointments?: No Do you have trouble paying your heating and electricity bill?: No Do you have trouble taking care of your child, family member or friend?: No Do you have trouble with day-to-day activities such as bathing, preparing meals, shopping, managing finances, etc.?: No Are you currently unemployed and looking for a job?: No Are you interested in more education?: No Please select the resources that you would like help with: None Currently or been in a relationship where the following occur: No concerns repo rted THRIVE Score: 0 AUDIT C Alcohol Use Questionnaire (AUDIT-C) 1. How often do you have a drink containing alcohol?: 4 or more times a week 2. How many drinks containing alcohol do you have on a typical day when you are drinking?: 1 or 2 3. How often do you have six or more drinks on one occasion?: Never Total Score: 4 Score Reviewed/Action Taken: Yes LINDSEY-7 AMB Questionnaire LINDSEY-7 Date LINDSEY - 7 assessed: 10/26/24 Feeling nervous, anxious, or on edge: 0 = Not at all Not being able to stop or control worryin = Not at all Worrying too much about different things: 0 = Not at all Trouble relaxin = Not at all Being so restless that it is hard to sit still: 0 = Not at all Becoming easily annoyed or irritable: 0 = Not at all Feeling afraid as if something awful might happen: 0 = Not at all Total LINDSEY-7 score (0-4 normal; 5-9 mild; 10-14 moderate; 15-21 severe): 0 Source: Developed by Drs. Paolo Garcia, Mariana De La Cruz, Derek Thomas and colleagues, with an educational luna from [employer]. LINDSEY-7 Assessment Billing LINDSEY-7 Assessment Tool: LINDSEY-7 Assessment 62807 Physical exam (Primary Care) Vital Signs: Last Vital Signs Pulse 86 10/26/24 15:05 BP 138/82 10/26/24 15:05 Pulse Ox 98 10/26/24 15:05 Oxygen Delivery Method Room Air 10/26/24 15:05 BMI result Body Mass Index 27.6 Tobacco/Smoking Status: Tobacco use Status Tobacco use date assessed 10/26/24 10/26/24 15:08 Patient Tobacco Use Status Former Tobacco user 10/26/24 15:08 e-Cigarette/Vaping Use Never Used 10/26/24 15:08 PHQ-9: PHQ-9 Score PHQ-9: Total score 0 10/26/24 15:08 Depression Screening Interpretation: Negative Thrive Assessment: Date of Thrive Assessment Date Thrive assessed 10/26/24 10/26/24 15:08 Currently or been in a relationship where the following occur: No concerns reported Coding Level of Care Code Est Pt Prev Care 40-64y(81270) Diagnoses Physical exam Z00. Screening PSA (prostate specific antigen) Z12.5 Additional Codes LINDSEY-7 Assessment Billing - LINDSEY-7 Assessment Tool: LINDSEY-7 Assessment 55908 ([id number]) PHQ-9 - 58152 - PHQ-9 Billing: Yes ([id number]) Assessment & Plan Assessment & Plan (1) Physical exam: Code(s): Z00.00 - Encounter for general adult medical examination without abnormal findings Category: Medical (2) Screening PSA (prostate specific antigen): Code(s): Z12.5 - Encounter for screening for malignant neoplasm of prostate Category: Medical Plan . Orders: Orders Comprehensive Aldie. Panel Fast Today Z00.00 - Encounter for general adult medical examination without abnormal findings UA CC w/rflx Micro + Cult Today Z00.00 - Encounter for general adult medical examination without abnormal findings Lipid Panel Today Z00.00 - Encounter for general adult medical examination without abnormal findings Prostate Specific Antigen Scr Today Z12.5 - Encounter for screening for malignant neoplasm of prostate Complete Blood Count Auto Diff Today Z00.00 - Encounter for general adult medical examination without abnormal findings TSH reflex Free T4 Today Z00.00 - Encounter for general adult medical examination without abnormal findings
[2024-10-26 15:05] VITALS: BP 138/82; PULSE 86; O2SAT 98; BMI 27.6
== END 2024-10-26 15:31 | disposition home or self-care (01) ==
LOC: HO.HMCC 14:59
PROVIDERS: PCP Nurse Practitioner Family; Visit Provider Nurse Practitioner Family
DX: Z00.00 Encounter for general adult medical examination without abnormal findings (principal); Z12.5 Encounter for screening for malignant neoplasm of prostate

== ENCOUNTER → 2024-10-26 14:58 | Outpatient (BNVA) | payer OTHER, SELFPAY | PROVIDERS: PCP Nurse Practitioner Family; Visit Provider Nurse Practitioner Family | DX: Z00.00 Encounter for general adult medical examination without abnormal findings (principal); K42.9 Umbilical hernia without obstruction or gangrene; Z87.891 Personal history of nicotine dependence | CPT/HCPCS: 96127; 99396 ==

== ENCOUNTER 2024-12-09 12:12 | Outpatient (REF) | payer OTHER, SELFPAY ==
[2024-12-09 13:51] LABS: MANUAL DIFF FLAG NO
[2024-12-09 13:56] LABS: Basophils Percent Auto 0.6 % (0-2); Eosinophils Absolute Auto 0.2 X10*3/uL (0.0-0.4); Eosinophils Percent Auto 3.8 % (0-4); Hematocrit 41.8 % (42.0-52.0); Hemoglobin 14.1 g/dl (14.0-18.0); Imm Gran Abs Auto 0.01 X10*3/uL (0.00-0.03); Imm Gran Pct Auto 0.2 % (0.0-0.4); Lymphocytes Absolute Auto 1.4 X10*3/uL (1.2-4.9); Lymphocytes Percent Auto 26.2 % (20-40); Mean Corpuscular HGB Conc 33.7 g/dl (31.0-36.0); Mean Corpuscular Hemoglobin 31.9 pg (27.0-33.0); Mean Corpuscular Volume 94.6 fL (80.0-98.0); Mean Platelet Volume 10.4 fL (9.4-12.4); Monocytes Absolute Auto 0.6 X10*3/uL (0.1-1.2); Monocytes Percent Auto 11.7 % (2-11); Neutrophils Absolute Auto 3.1 x10*3/uL (2.0-8.3); Neutrophils Percent Auto 57.5 % (45-73); Platelet Count 243 X10*3/uL (160-400); Red Blood Count 4.42 X10*6/uL (4.60-5.80); Red Cell Distribution Width 13.1 % (11.0-16.0); White Blood Count 5.3 X10*3/uL (4.8-10.8)
[2024-12-09 13:57] LABS: Appearance Urine Clear; Color Urine Yellow; Glucose Urine UA Negative (Negative); Leukocyte Esterase Urine Negative (Negative); Nitrite Urine Negative (Negative); PH 5.5 (5.0-9.0); Specific Gravity - Urine 1.025 (1.005-1.025); Urine Blood Negative (Negative); Urine Ketones Trace mg/dL (Negative); Urine Protein Trace mg/dL (Neg-Trace)
[2024-12-09 14:12] LABS: Alanine Aminotransferase 46 U/L (0-40); Albumin Level 4.5 g/dL (3.5-5.0); Alkaline Phosphatase 58 U/L (39-117); Anion Gap 15 (12-20); Aspartate Amino Transferase 38 U/L (5-37); Bilirubin Total 0.4 mg/dL (0.0-1.0); Blood Urea Nitrogen 15 mg/dL (9-16); Calcium 9.3 mg/dL (8.4-10.2); Carbon Dioxide 26 mmol/L (22-29); Chloride 106 mmol/L (96-108); Cholesterol 202 mg/dL (<200); Estimated Glomerular Filt Rate > 60; Glucose Fasting 88 mg/dL (60-99); HDL Cholesterol 61 mg/dL (>40); LDL Cholesterol Calculated 86 mg/dL (<100); Potassium 4.5 mmol/L (3.3-5.1); Sodium 142 mmol/L (135-145); Total Protein 7.8 g/dL (6.5-8.0); Triglycerides 275 mg/dL (<150)
[2024-12-09 14:26] LABS: TSH reflex Free T4 0.73 uIU/mL (0.32-4.0)
[2024-12-09 14:27] LABS: Prostate Specific Antigen Scr 0.39 ng/mL (<0.05-4.0)
== END 2024-12-09 12:13 | disposition home or self-care (01) ==
LOC: HO.HMGCLDS 12:12
PROVIDERS: PCP Nurse Practitioner Family; Visit Provider Nurse Practitioner Family
DX: Z12.5 Encounter for screening for malignant neoplasm of prostate (principal); Z00.00 Encounter for general adult medical examination without abnormal findings
CPT/HCPCS: 36415; 80053; 80061; 81003; 84153; 84443; 85025

== ENCOUNTER 2025-01-18 09:48 | Outpatient (REF) | payer OTHER, SELFPAY ==
--- NOTE | ~2025-01-18 | US_ITS ---
EXAMINATION: US ABDOMEN HISTORY: F10.90 - Alcohol use, unspecified, uncomplicated TECHNIQUE: Real-time grayscale ultrasound imaging of the abdomen was performed and images were reviewed. COMPARISON: Comparison is made with the prior examination dated 05/09/2024. FINDINGS: Liver: The right lobe of the liver measures 16.4 cm in size. The left lobe of the liver measures 7.1 cm in size. The liver demonstrates increased echotexture, consistent with steatosis. No focal mass or intrahepatic biliary ductal dilatation is identified. Gallbladder and biliary tree: The gallbladder is unremarkable, without evidence of calculi, wall thickening, or pericholecystic fluid. There is no sonographic Solis sign. The common bile duct is normal in caliber measuring 3 mm. Kidneys: The right kidney measures 10.1 cm in length. The left kidney measures 10.1 cm in length. The kidneys are unremarkable, without evidence of masses, hydronephrosis, or calculi. Pancreas: The pancreatic head, neck, and body are unremarkable. The pancreatic tail is obscured by bowel gas. Spleen: The spleen is normal in size and contour, measuring 9.9 cm in length. Abdominal aorta and inferior vena cava: The visualized portions of the abdominal aorta and inferior vena cava are normal in caliber. There is no free fluid in the abdomen. US/US abdomen complete IMPRESSION: Hepatic steatosis. Electronically signed by: Paolo Rincon MD 01/18/2025 10:13 AM EDT
== END 2025-01-18 09:49 | disposition home or self-care (01) ==
LOC: HO.HMGCX 09:48
PROVIDERS: PCP Nurse Practitioner Family; Visit Provider Nurse Practitioner Family
DX: K76.0 Fatty (change of) liver, not elsewhere classified (principal); R74.8 Abnormal levels of other serum enzymes; F10.90 Alcohol use, unspecified, uncomplicated
CPT/HCPCS: 76700

== ENCOUNTER → 2025-01-18 09:50 | Outpatient (BNV) | payer OTHER, SELFPAY | PROVIDERS: PCP Nurse Practitioner Family; Visit Provider Radiology Diagnostic Radiology | DX: K76.0 Fatty (change of) liver, not elsewhere classified (principal) | CPT/HCPCS: 76700 ==